=== PATIENT | male | born 1940 | race Caucasian/White ===

== ENCOUNTER → 2022-06-30 12:26 | Outpatient (CLI) | payer MEDICARE, SELFPAY ==
--- NOTE | ~2022-06-30 | CT_ITS ---
EXAMINATION: CT abdomen pelvis w con DATE: 06/30/2022 13:11 INDICATION: Left abdominal pain. TECHNIQUE: Computed tomography (CT) of the abdomen and pelvis was performed with 100 mL Omnipaque 350 intravenous contrast. Automated exposure control and iterative reconstruction technique were employe d. The dose-length product was 570.20 mGy-cm. COMPARISON: None. FINDINGS: The visualized portions of the lung bases demonstrate mild atelectasis. No pleural effusion . The heart size is normal. There are coronary artery calcifications. No pericardial effusion. There is a small sliding hiatal hernia. The liver, gallbladder, pancreas, and adrenal glands are normal. Ca lcifications in the spleen are consistent with old granulomatous disease. The kidneys are normal. The prostate is severely enlarged. There is diverticulosis of the colon without evidence of diverticulit is. The appendix is not visualized. There are no pathologically enlarged lymph nodes. There is no fr ee intraperitoneal fluid. There is severe lumbar spondylosis. IMPRESSION: 1. Small sliding hiatal hernia. Reviewed, dictated and finalized at location E.
[2022-06-30 12:59] LABS: Estimated Glomerular Filt Rate 53
== END ==
PROVIDERS: PCP Internal Medicine; Visit Provider Physician Assistant
DX: R10.9 Unspecified abdominal pain (principal); K44.9 Diaphragmatic hernia without obstruction or gangrene
CPT/HCPCS: 74177; Q9967

== ENCOUNTER 2023-02-02 01:22 | Day surgery (SDC) | payer MEDICARE, SELFPAY ==
[2023-01-19 10:46] VITALS: BMI 23.4
--- NOTE | 2023-01-31 10:17 | SUR.PREOP ---
Patient called regarding upcoming procedure. Reviewed preop instructions, appointment times, and procedure prep.
--- NOTE | 2023-02-01 15:13 | PM.HPGS ---
History of Present Illness History of Present Illness Consent: Risks, benefits, and alternatives have been discussed and questions answered. Patient agrees to proceed with procedure. Chief complaint: neoplasm screening Narrative: Chad Small is a 82 year old male Referred for colon cancer screening. His last colonoscopy was 13 years ago. Review of Systems Review of Systems: All systems reviewed & are unremarkable except as noted in HPI and below PMFSH Family History Family History Mother Acute myocardial infarction, Onset Age: 93 Patient's mother is Father Acute myocardial infarction, Onset Age: 84 Patient's father is Social History Social History Smoking status: Former smoker Second hand tobacco smoke exposure: No Smoking end date: 02/20/1962 Alcohol intake: current Alcohol use details: Occasional Beer Lack of Transportation: No Lack of Food: Never True Current Housing: I Have Housing Concerned About Future Housing: No Difficulty Paying Gas/Electric Bills: No Difficulty Paying for Meds: No Currently Unemployed: No Education: Bachelor's Degree Difficulty w/ Childcare or Family Care: No Living arrangements: with family Spiritual care concerns: No Meds Home Medications and Allergies Home Medications Medication Instructions Recorded Confirmed Type aspirin 81 mg tablet,delayed 81 mg PO DAILY 01/01/19 02/02/23 History release (Adult Low Dose Aspirin) lisinopril 10 mg tablet 10 mg PO DAILY #90 tabs 11/11/22 02/02/23 Rx Allergies Allergy/AdvReac Type Severity Reaction Status Date / Time No Known Allergies Allergy Mild Verified 02/02/23 09:34 Exam Resp: Auscultation: clear to auscultation bilaterally Cardio: Rate: regular rate Rhythm: regular rhythm GI: GI Palp: Yes Soft to palpation and No Tenderness to palpation present (GI) Assessment and Plan Assessment and plan (1) Colon cancer screening: Code(s): Z12.11 - Encounter for screening for malignant neoplasm of colon Status: Acute Assessment and Plan: Colonoscopy with possible biopsy or polypectomy or cautery or injection of substances.
[2023-02-02 09:50] VITALS: BP 143/71; PULSE 74; RESP 18; TEMP 36; O2SAT 100
[2023-02-02] MEDS: LACTATED RINGERS 1,000 ML 150 ML IV CONT (09:52)
--- NOTE | 2023-02-02 09:52 | WPDANESEPPF ---
Anes - Initial Pre Proc Eval Procedure: Operation Date: 02/02/23 10:30 Proposed Procedures p Screening Colonoscopy - Charlie Lamb MD Date/Time: 02/02/23 09:52 Surgeon: Charlie Lamb MD Pre Op Diagnosis: neoplasm screening Patient Data Age: 82 Gender: M Height: 1.73 m Weight: 68.6 kg Last Vital Signs Temp 96.8 F L 02/02/23 09:50 Pulse 74 02/02/23 09:50 Resp 18 02/02/23 09:50 BP 143/71 H 02/02/23 09:50 Pulse Ox 100 02/02/23 09:50 O2 Del Method Room Air 02/02/23 09:50 Allergies Allergy/AdvReac Type Severity Reaction Status Date / Time No Known Allergies Allergy Mild Verified 02/02/23 09:34 Home Medications Medication Instructions Recorded Confirmed Type aspirin 81 mg tablet,delayed 81 mg PO DAILY 01/01/19 02/02/23 History release (Adult Low Dose Aspirin) lisinopril 10 mg tablet 10 mg PO DAILY #90 tabs 11/11/22 02/02/23 Rx Patient hx anesthesia problems: none Family hx anesthesia problems: none Results Review: All pre-operative results and documents have been reviewed as part of the pre-operative evaluation. [facility] Family History Family History Mother Acute myocardial infarction, Onset Age: 93 Patient's mother is Father Acute myocardial infarction, Onset Age: 84 Patient's father is Social History Social History Smoking status: Former smoker Second hand tobacco smoke exposure: No Smoking end date: 02/20/1962 Alcohol intake: current Alcohol use details: Occasional Beer Lack of Transportation: No Lack of Food: Never True Current Housing: I Have Housing Concerned About Future Housing: No Difficulty Paying Gas/Electric Bills: No Difficulty Paying for Meds: No Currently Unemployed: No Education: Bachelor's Degree Difficulty w/ Childcare or Family Care: No Living arrangements: with family Spiritual care concerns: No Anes - Eval Final PreProcedure Day of Procedure 02/02/23 09:52 Patient weight: normal Heart: regular rate and rhythm Lungs: clear to auscultation Airway: Mallampati scale class II Neurological: alert and oriented Last oral intake: >/= 8 hours ASA classification: II Emergent: no Anesthetic plan: proceed Anesthesia type and monitoring: general GIVS and standard monitoring Results Review: All pre-operative results and documents have been reviewed as part of the pre-operative evaluation. Informed Consent: The patient's anesthetic plan and its attendant risks and benefits were discussed with the patient/family/POA. Questions were solicited and answers provided to the satisfaction of the patient/family/POA.
[2023-02-02 10:14] VITALS: BP 101/61; PULSE 69; RESP 18; O2SAT 97
[2023-02-02 10:24] VITALS: BP 126/65; PULSE 65; RESP 21; O2SAT 97
[2023-02-02 10:34] VITALS: BP 120/50; PULSE 73; RESP 23; O2SAT 100
== END 2023-02-02 10:52 | disposition home or self-care (01) ==
PROVIDERS: PCP Internal Medicine; Visit Provider Internal Medicine Gastroenterology
PROC: 0DJD8ZZ Inspection of Lower Intestinal Tract, Via Natural or Artificial Opening Endoscopic (ICD-10-PCS; CPT 45378; principal; 2023-02-02 10:30)
DX: Z12.11 Encounter for screening for malignant neoplasm of colon (principal); K57.30 Diverticulosis of large intestine without perforation or abscess without bleeding; K64.8 Other hemorrhoids; Z79.82 Long term (current) use of aspirin; Z87.891 Personal history of nicotine dependence
CPT/HCPCS: G0121; J2704; J7120

== ENCOUNTER 2023-08-13 08:03 | Emergency (ER) | payer MEDICARE, SELFPAY ==
--- NOTE | ~2023-08-13 | XR_ITS ---
EXAMINATION: XR chest 2V DATE: 08/13/2023 08:33 INDICATION: Cough, shortness of breath and pneumonia exposure TECHNIQUE: frontal and lateral views of the chest were obtained. COMPARISON: CT abdomen pelvis dated 06/30/2022 FINDINGS: Calcified right lower lobe nodule consistent with old granulomatous disease. No other airspace opacit ies, pulmonary edema, pleural effusion or pneumothorax. Heart size is normal with bilateral paracardi al fat pads. Mild to moderate thoracic spondylosis with mild anterior wedging of a couple mid thoraci c vertebral bodies. IMPRESSION: 1. No acute cardiopulmonary disease. Reviewed, dictated and finalized at location A.
--- NOTE | 2023-08-13 08:05 | ED.URI ---
HPI - URI/Sore Throat General Chief Complaint: Upper Respiratory Infection Stated Complaint: Congestion/Cough Time Seen by Provider: 08/13/23 08:04 Source: patient Mode of arrival: ambulatory Limitations: no limitations History of Present Illness HPI Narrative: Chad is an 82-year-old male patient presenting to the clinic today with complaints of productive cough with clear phlegm, nasal congestion, sore throat, chest discomfort with coughing, chest congestion, and intermittent shortness of breath. He reports he has had exposure to bacterial pneumonia. His symptoms have been going on for 5-6 days and he feels as though he is getting worse. He denies any known fever or chills. MD elicited complaint: cough, sore throat, nasal congestion and other (Chest congestion,) Related Data Home Medications Medication Instructions Recorded Confirmed aspirin 81 mg tablet,delayed 81 mg PO DAILY 01/01/19 08/13/23 release (Adult Low Dose Aspirin) Allergies Allergy/AdvReac Type Severity Reaction Status Date / Time No Known Allergies Allergy Mild Verified 08/13/23 08:14 Review of Systems Review of Systems: Pertinent positives per HPI. Patient denies any fever, chills, rash, headache, visual changes, dizziness, shortness of breath, palpitations, nausea, vomiting, diarrhea, constipation, abdominal pain, or any urinary issues. [facility] Family History Family History Mother Acute myocardial infarction, Onset Age: 93 Patient's mother is Father Acute myocardial infarction, Onset Age: 84 Patient's father is Social History Social History Smoking status: Former smoker Second hand tobacco smoke exposure: No Smoking end date: 02/20/1962 Alcohol intake: current Alcohol use details: Occasional Beer Lack of Transportation: No Lack of Food: Never True Current Housing: I Have Housing Concerned About Future Housing: No Difficulty Paying Gas/Electric Bills: No Difficulty Paying for Meds: No Currently Unemployed: No Education: Bachelor's Degree Difficulty w/ Childcare or Family Care: No Living arrangements: with family Spiritual care concerns: No Comments At the time of my signature, I reviewed and agree with the nursing past medical, surgical, social, and family history. There is no relevant family history pertinent to the patient complaint. Exam Narrative: General: Well-developed, well nourished, in no apparent distress Head: Normocephalic, atraumatic Eyes: Pupils equally round and reactive to light bilaterally, EOM intact, sclera and conjunctive clear, no discharge, lids normal Ears: TMs intact and congested, ear canals clear, no drainage, grossly hearing normal. Nose: Nares patent, clear nasal discharge, no inflammation, no sinus tenderness. Mouth: Oral pharynx red without lesions or masses, good dentition, MMM. Postnasal drip Neck: Supple, trachea midline, no enlargement of anterior or posterior cervical nodes, no thyroid masses or goiter palpable. Cardio: Regular rate and rhythm, s1 and s2 normal, no murmur appreciated. Resp: Clear to auscultation bilaterally, no rhonchi, rales, wheezing or rubs Course Course Emergency Course: Portions of this record may have been created with voice recognition software. Level of Care: Express Care Visit Vital Signs Vital signs: Vital signs reviewed MDM - URI/Sore Throat MDM Narrative Medical decision making narrative: At the time of visit patient is resting comfortably on the exam table. Patient appears to be nontoxic. Labs: COVID, influenza, and strep test were all performed and negative in the clinic today. We will send strep for culture. Diagnostics: Chest x-rays negative for any sign of pneumonia Plan: I suspect patient has URI with postnasal drip. Prescription for Tessalon
[2023-08-13 08:17] VITALS: BP 123/69; PULSE 72; RESP 16; TEMP 36.8; O2SAT 98
== END 2023-08-13 08:56 | disposition home or self-care (01) ==
PROVIDERS: Emergency Provider Nurse Practitioner Family; PCP Family Medicine
DX: R09.82 Postnasal drip (principal); J06.9 Acute upper respiratory infection, unspecified; Z20.822 Contact with and (suspected) exposure to COVID-19; Z87.891 Personal history of nicotine dependence; Z79.82 Long term (current) use of aspirin; I10 Essential (primary) hypertension; Z86.16 Personal history of COVID-19; Z85.828 Personal history of other malignant neoplasm of skin
CPT/HCPCS: 71046; 87081; 87426; 87804; 87880; 99213; G0463